=== PATIENT | female | born 1995 | race Caucasian/White ===

== ENCOUNTER 2017-09-06 21:23 | Emergency (ER) | payer OTHER ==
[~2017-09-06] VITALS: Ht 180.3 cm; Wt 106.8 kg
[2017-09-06] MEDS ORDERED: LIDOCAINE HCL 1% 10 ML VIAL INJ ONE (22:45)
[2017-09-06] MEDS ORDERED: IBUPROFEN 800 MG TABLET PO ONE (22:45)
[2017-09-06] MEDS ORDERED: PENICILLIN V POTASSIUM 500 MG TABLET PO ONE (22:45)
[2017-09-06 23:24] VITALS: BP 134/85
== END 2017-09-06 23:28 | disposition home or self-care (01) ==
LOC: EMS 21:28
DX: K08.89 Other specified disorders of teeth and supporting structures (principal); Z88.6 Allergy status to analgesic agent
CPT/HCPCS: 64400; 99284; J3490

== ENCOUNTER 2017-09-07 02:55 | Emergency (ER) | payer OTHER ==
[~2017-09-07] VITALS: Ht 180.3 cm; Wt 107.7 kg
[2017-09-07] MEDS ORDERED: OxyCODONE HCL/ACETAMINOPHEN 5-325 MG TABLET PO ONE (04:30)
[2017-09-07 04:35] VITALS: BP 138/80
== END 2017-09-07 05:08 | disposition home or self-care (01) ==
LOC: EMS 02:57
DX: K08.89 Other specified disorders of teeth and supporting structures (principal)
CPT/HCPCS: 99282; 99283